=== PATIENT | female | born 1955 | race Caucasian/White ===

== ENCOUNTER 2020-08-26 21:10 | Emergency (ER) | payer OTHER ==
[~2020-08-26] VITALS: Ht 170.2 cm; Wt 86.0 kg
[2020-08-26 21:40] VITALS: BP 160/90
--- NOTE | 2020-08-26 21:53 | PHYS DOC ---
Past History Past Medical History: Hypothyroid Past Surgical History: Cholecystectomy Smoking: Non-smoker Alcohol Use: None Drug Use: None General Adult EDM: Chief Complaint: HAND PROBLEM HPI: HPI: 64-year-old female presents with report of mechanical trip and fall on sidewalk [place] just prior to arrival. Patient reports landing on back of left hand with abrasions and swelling. Patient reports pain with range of motion about fourth and fifth digit. Denies deformity. Denies use of blood thinners. Denies head trauma or neck pain. Patient reports last tetanus booster greater than 5 years ago. Review of Systems: Review of Systems: Constitutional: Denies fever or chills Eyes: Denies redness or eye pain HENT: Denies nasal congestion or sore throat Respiratory: Denies cough or shortness of breath Cardiovascular: Denies chest pain or palpitations GI: Denies abdominal pain, nausea, or vomiting : Denies dysuria or hematuria Musculoskeletal: Denies back pain or joint pain Integument: Reports abrasion and swelling to left hand Neurologic: Denies headache, focal weakness or sensory changes Complete systems were reviewed and found to be within normal limits, except as documented in this note. Current Medications: Current Meds: Current Medications Medications (Trade) Dose Ordered Sig/Jennifer Start Time Stop Time Status Last Admin Dose Admin Diphtheria/ Pertussis/Tetanus Vacc (ADACEL TDap SYRINGE) 0.5 ml ONCE ONCE 08/26/20 21:45 08/26/20 21:46 UNV Neomycin/ Polymyxin/ Bacitracin (Triple Antibiotic Ointment) 1 pkt 1X ONCE 08/26/20 21:30 08/26/20 21:31 UNV Allergies: Allergies: Allergies Coded Allergies Type Severity Reaction Last Updated Verified Penicillins Allergy Unknown 08/26/20 Yes Physical Exam: PE: Constitutional: Well developed, well nourished, no acute distress, non-toxic appearance HENT: Normocephalic, atraumatic Eyes: Conjunctiva normal, no discharge Neck: Normal range of motion, supple Lungs & Thorax: No respiratory distress, equal chest rise and fall Skin: Warm, dry, no erythema, abrasions noted to lateral aspect of left palm and fifth digit Extremities: Left fifth MCP and fourth and fifth metacarpal tenderness on palpation, ROM intact, small contusion noted to palmar aspect at distal fourth metacarpal Neurologic: Alert and oriented X 3, no focal deficits noted Psychologic: Affect normal, judgment normal Current Patient Data: Vital Signs: Vital Signs Date Time Temp Pulse Resp B/P (MAP) Pulse Ox O2 Delivery O2 Flow Rate FiO2 08/26/20 21:40 97.6 77 16 160/90 (113) 97 Room Air EKG: EKG: [] Radiology/Procedures: Radiology/Procedures: PROCEDURE: HAND LEFT 3V Exam: Left hand 3 views INDICATION: Hand can fusion, pain TECHNIQUE: Frontal, lateral and oblique views of the left hand Comparisons: None FINDINGS: Bone mineralization is normal. No acute or healed fractures. Soft tissues are unremarkable. Joint spaces are well-maintained. IMPRESSION: No acute osseous abnormality of the left hand Electronically signed by: Michael Samuel MD (08/26/2020 10:09 PM) [facility] Heart Score: C/O Chest Pain: N/A Course & Med Decision Making: Course & Med Decision Making Pertinent Imaging studies reviewed. (See chart for details) Patient presents with mechanical trip and fall with abrasions and contusion to left hand. Pain primarily to fifth MCP and distal aspect of fourth and fifth metacarpal. Wedding ring successfully removed by patient. Abrasions cleaned and dressed. Tetanus updated. Pain medication offered which patient declined. X-ray obtained without fracture or dislocation. Clem wrap applied. Ice pack provided. Patient stable for discharge with outpatient follow-up with PCP. Discussed findings and plan with patient and spouse, who acknowledge understanding and agreement. Lala Disclaimer: Lala Disclaimer: This electronic medical record was generated, in whole or in part, using a voice recognition dictation system. Splinting Splinting : Location: Left hand Pre-Made Type: Clem bandage Pre-Proc Neuro Vasc Exam: normal Post-Proc Neuro Vasc Exam: normal, unchanged from pre-exam Departure Departure: Impression: Primary Impression: Contusion of hand, left Qualified Codes: S60.222A - Contusion of left hand, initial encounter Additional Impression: Abrasion of hand and fingers Qualified Codes: S60.512A - Abrasion of left hand, initial encounter; S60.419A - Abrasion of unspecified finger, initial encounter Disposition: HOME / SELF CARE / HOMELESS Condition: STABLE Referrals: [facility] (PCP) Patient Instructions: Abrasion, [id number], Elastic Bandage and RICE, Hand Contusion, [id number] Additional Instructions: Do not soak your wound. You may shower. Clean wound daily with soap and water. Change dressing 2 times daily. Use over the counter antibiotic ointment with each dressing change. Ice area of discomfort 20 minutes on then leave off next 20 minutes. Repeat several times daily for the next few days. Take [id number] ibuprofen and/or Tylenol for pain or discomfort. CATARINO MOORE DO August 26, 2020 21:53
[2020-08-26] MEDS ORDERED: DIPH,PERTUSS(ACELL),TET VAC/PF 0.5 ML SYRINGE. VAX IM ONE (22:00)
[2020-08-26] MEDS ORDERED: NEOMY/BACITR/POLYMYXIN OINT PACKET. TP ONE (22:00)
--- NOTE | 2020-08-26 22:11 | RAD ---
Exam: Left hand 3 views INDICATION: Hand can fusion, pain TECHNIQUE: Frontal, lateral and oblique views of the left hand Comparisons: None FINDINGS: Bone mineralization is normal. No acute or healed fractures. Soft tissues are unremarkable. Joint spa brielle are well-maintained. IMPRESSION: No acute osseous abnormality of the left hand Electronically signed by: Michael Samuel MD (08/26/2020 10:09 PM) [facility]
== END 2020-08-26 22:00 | disposition home or self-care (01) ==
LOC: ER 21:10
DX: S60.222A Contusion of left hand, initial encounter (principal); E03.9 Hypothyroidism, unspecified; Z88.0 Allergy status to penicillin; W01.0XXA Fall on same level from slipping, tripping and stumbling without subsequent striking against object, initial encounter; Y93.89 Activity, other specified; Y92.89 Other specified places as the place of occurrence of the external cause; Y99.8 Other external cause status
CPT/HCPCS: 73130; 90471; 90715; 99284

== ENCOUNTER → 2020-09-17 | Outpatient (CLI) | payer MEDICARE, OTHER ==
[2020-08-26 21:40] VITALS: BP 160/90
--- NOTE | 2020-09-17 15:44 | RAD ---
INDICATION: Screening for osteopenia/osteoporosis. Postmenopausal evaluation. COMPARISON: None. TECHNIQUE: Bone densitometry was performed through the lumbar spine and proximal femur. IMPRESSION: Lumbar Spine: BMD: 1.38 T-Score: 1.7 Range: Normal Proximal Femur: BMD: 0.94 T-Score: -0.2 Range: Normal World Health Organization Criteria for Bone Density: T-Score: > -1.0: Normal Range < -1.0 to -2.5: Osteopenic Range < -2.5: Osteoporotic Range Electronically signed by: Richard Miller MD (09/17/2020 3:42 PM) [id number]
== END ==
LOC: DXRAD 12:59
PROVIDERS: ATTEND Internal Medicine
DX: Z13.820 Encounter for screening for osteoporosis (principal); Z78.0 Asymptomatic menopausal state
CPT/HCPCS: 77080